=== PATIENT | male | born 1950 | race African-American/Black ===

== ENCOUNTER → 2018-07-15 | Outpatient (CLI) | payer MEDICARE, OTHER ==
--- NOTE | 2018-07-15 12:28 | Diagnostic Imaging Report ---
INDICATION: History of renal calculus. Followup. COMPARISON: None. FINDINGS: Single supine radiographic view of the abdomen was obtained and demonstrates nondistended loops of small bowel. There is no large collection of free peritoneal air. Moderate air and stool are seen scattered throughout the colon. No unexpected extraosseous calcifications or radiopaque foreign bodies are seen. Bony structures show no gross acute abnormalities. IMPRESSION: 1. Nonobstructed small bowel gas pattern. 2. Moderate colonic air and stool. Please correlate for constipation. Dictated by: Dictated on workstation # [id number]
== END ==
LOC: RAD FS 12:08
PROVIDERS: ATTEND Urology
DX: N20.0 Calculus of kidney (principal); N21.0 Calculus in bladder
CPT/HCPCS: 74018

== ENCOUNTER → 2019-07-19 | Outpatient (CLI) | payer MEDICARE, OTHER ==
[~2019-07-19] VITALS: Ht 191 cm; Wt 102.0 kg
[~2019-07-19] MED LIST: CATHETER FLUSH 10 ML SYR IV PRN; REGADENOSON 0.4 MG/5 ML SYR (LEXISCAN) IV ONE
[2019-07-19 13:30] VITALS: BP 135/88
--- NOTE | 2019-07-19 15:44 | STRESS TEST ---
DATE OF SERVICE: 07/19/2019 LEXISCAN MYOVIEW STRESS TEST REPORT REFERRING PHYSICIAN: [facility]. Baseline heart rate is 84, baseline blood pressure 137/89. Baseline EKG is sinus rhythm with left bundle-branch block. In summary, the patient was injected with 10.93 mCi of technetium-99 Myoview and the resting images were obtained. Then, the patient received 0.4 mg of Lexiscan followed by 29.2 mCi of technetium-99 Myoview. Throughout the test, there were no EKG changes. The resting and stress images were reviewed and compared in the short axis, horizontal long axis, and vertical long axis views. Review of the images showed diaphragmatic attenuation with mild decreased uptake involving the mid to apical anteroseptal and inferoseptum with mild reversibility. SSS is 6, SDS 5, TID value 1.15. On the gated images, the left ventricle appeared to be in normal size with mild diffuse left ventricular hypokinesia, calculated ejection fraction 49%. CONCLUSION: 1. The patient tolerated Lexiscan well. 2. Diaphragmatic attenuation with questionable mild ischemia involving the mid to apical anteroseptum and inferoseptum, could be due to underlying left bundle-branch block. 3. Normal left ventricular size with normal contractility. Calculated ejection fraction 49%. Job ID: [id number] DocumentID: [id number] Dictated Date: 07/19/2019 14:58:09 [employer] Operator Date: 07/19/2019 15:44:07 Dictated By: TUAN RAYGOZA MD
== END ==
LOC: CARD 11:46
PROVIDERS: ATTEND Internal Medicine Cardiovascular Disease
DX: I11.0 Hypertensive heart disease with heart failure (principal); I50.9 Heart failure, unspecified; E78.2 Mixed hyperlipidemia
CPT/HCPCS: 78452; 93017

== ENCOUNTER → 2019-09-18 | Outpatient (CLI) | payer MEDICARE, OTHER | LOC: CARD 08:14 | PROVIDERS: ATTEND Internal Medicine Cardiovascular Disease | DX: I11.0 Hypertensive heart disease with heart failure (principal); E78.2 Mixed hyperlipidemia; R53.82 Chronic fatigue, unspecified; I50.9 Heart failure, unspecified; I35.0 Nonrheumatic aortic (valve) stenosis | CPT/HCPCS: 93306 ==

== ENCOUNTER → 2019-10-20 | Outpatient (CLI) | payer MEDICARE, OTHER ==
--- NOTE | 2019-10-20 10:52 | Diagnostic Imaging Report ---
INDICATION: Renal calculus. COMPARISON: July 15, 2018. TECHNIQUE: Two radiographs of the abdomen dated October 20, 2019. FINDINGS: Surgical clips are present within the right upper quadrant of the abdomen. Nonobstructive loops of large and small bowel are again identified. Calcifications overlying the right pelvis are again identified and stable from the prior exam, favored related to phleboliths. Small rounded hyperdensities are noted overlying the expected location of the bilateral renal shadows, largest measuring 5 mm on the left. The majority of these appear stable from prior exam. No free air. Scattered osseous degenerative changes without acute osseous abnormality. IMPRESSION: Tiny radiopaque densities overlying the expected location of the bilateral kidneys. These may relate to renal stones versus enteric contents versus vascular calcifications. Stable presumed phleboliths within the right pelvis. Nonobstructive bowel gas pattern. Dictated by: Dictated on workstation # [id number]
== END ==
LOC: RAD FS 10:26
PROVIDERS: ATTEND Urology
DX: N20.0 Calculus of kidney (principal); Z98.890 Other specified postprocedural states
CPT/HCPCS: 74018

== ENCOUNTER → 2020-08-16 | Outpatient (CLI) | payer MEDICARE, OTHER ==
--- NOTE | 2020-08-16 13:23 | Diagnostic Imaging Report ---
REASON FOR EXAM: History of renal stone 2 weeks ago. COMPARISON: 10/20/2019. TECHNIQUE: 2 views of the abdomen FINDINGS: The bowel gas pattern is nondistended. No large collection of free intraperitoneal air is seen. A moderate amount of gas and fecal material are present in the colon. Focal calcifications are again seen overlying the bilateral kidneys, suggestive of nonobstructing calculi. The osseous structures are age-appropriate. IMPRESSION: 1. Redemonstration of bilateral nonobstructing renal calculi. Consider CT of the abdomen and pelvis without contrast to further characterize. Dictated by: Dictated on workstation # [id number]
== END ==
LOC: RAD FS 10:53
PROVIDERS: ATTEND Urology
DX: N20.0 Calculus of kidney (principal)
CPT/HCPCS: 74018

== ENCOUNTER → 2020-10-18 | Outpatient (CLI) | payer MEDICARE, OTHER ==
--- NOTE | 2020-10-18 14:09 | Diagnostic Imaging Report ---
HISTORY: Right flank pain and hematuria COMPARISON: 08/16/2020 TECHNIQUE: Frontal view of the abdomen FINDINGS: Small hyperdensities are seen in the kidneys, consistent with known renal calcifications. No calculi are seen along the expected course of the ureters or at the bladder. There are calcifications at the spleen. Phleboliths are noted in the right pelvis. The bowel gas pattern is nonspecific but appears stable compared to prior exams. No large collection of free air is seen. Cholecystectomy clips are noted. IMPRESSION: 1. Redemonstrated renal calcifications. No definite calculi are seen along the course of the ureters, but this would be better evaluated with CT. Dictated by: Dictated on workstation # [id number]
== END ==
LOC: RAD FS 10:43
PROVIDERS: ATTEND Urology
DX: R31.9 Hematuria, unspecified (principal); R10.9 Unspecified abdominal pain; Z87.442 Personal history of urinary calculi
CPT/HCPCS: 74018

== ENCOUNTER → 2020-10-18 | Outpatient (CLI) | payer MEDICARE, OTHER ==
--- NOTE | 2020-10-18 12:33 | Diagnostic Imaging Report ---
EXAMINATION: CT abdomen and pelvis without contrast. TECHNIQUE: Multiple contiguous axial images were obtained through the abdomen and pelvis without the use of intravenous contrast. All CT scans use one or more of the following dose optimizing techniques: automated exposure control, MA and/or KvP adjustment based on patient size and exam type or iterative reconstruction. HISTORY: RT FLANK PAIN COMPARISON: None available. FINDINGS: Lung bases: Bibasilar dependent atelectasis. Solid organs: The liver is normal. The gallbladder is surgically absent. There is no biliary ductal dilation. Pancreas is normal. There are multiple calcified granulomas within the spleen. Adrenal glands are normal. There are multiple bilateral nonobstructing renal calculi which measure up to 0.4 cm on the left. There is no hydronephrosis. Bowel: The stomach and small bowel are normal without obstruction. There are a few scattered colonic diverticula. The appendix is normal. Peritoneum: There is no intraperitoneal free fluid or free air. No suspicious lymphadenopathy. Vasculature: Calcification of the aorta without aneurysm. Musculoskeletal: Degenerative changes of the spine without suspicious osseous lesion or compression fracture. Pelvis: The prostate gland is enlarged. The urinary bladder is normal. IMPRESSION: 1. No acute abnormality in the abdomen or pelvis. 2. Bilateral nonobstructing renal calculi measuring up to 0.4 cm. No hydronephrosis. 3. Colonic diverticulosis without findings of diverticulitis. Dictated by: Dictated on workstation # [id number]
== END ==
LOC: RAD FS 12:10
PROVIDERS: ATTEND Urology
DX: N20.0 Calculus of kidney (principal); K57.30 Diverticulosis of large intestine without perforation or abscess without bleeding
CPT/HCPCS: 74176

== ENCOUNTER → 2021-10-17 | Outpatient (CLI) | payer MEDICARE, OTHER ==
--- NOTE | 2021-10-17 11:47 | Diagnostic Imaging Report ---
INDICATION: History of renal calculus. COMPARISON: 10/18/2020 2 frontal supine radiographic views of the abdomen were obtained. FINDINGS: Mild gas is seen scattered diffusely throughout the small bowel. There is no large collection of free intraperitoneal air. No unexpected extraosseous calcifications or radiopaque foreign bodies are seen. Please note, renal shadows are obscured by debris within the large and small bowel. Osseous structures show no acute abnormalities. IMPRESSION: 1. Nonobstructive small bowel gas pattern. 2. Suboptimal evaluation for renal calculi given obscuration by debris within the large and small bowel. Dictated by: Dictated on workstation # [id number]
== END ==
LOC: RAD FS 10:06
PROVIDERS: ATTEND Urology
DX: Z87.442 Personal history of urinary calculi (principal)
CPT/HCPCS: 74018

== ENCOUNTER → 2022-07-31 | Outpatient (CLI) | payer MEDICARE, OTHER ==
[2022-07-31 07:23] LABS: ALBUMIN 3.5 GM/DL (3.2-4.5); BILIRUBIN,TOTAL 0.5 MG/DL (0.1-1.0); CREATININE SERUM 1.24 MG/DL (0.60-1.30); POTASSIUM 3.9 MMOL/L (3.6-5.0); TOTAL PROTEIN 6.5 GM/DL (6.4-8.2)
== END ==
LOC: CARD 06:40
PROVIDERS: ATTEND Internal Medicine Cardiovascular Disease
DX: I11.0 Hypertensive heart disease with heart failure (principal); I65.23 Occlusion and stenosis of bilateral carotid arteries; E78.2 Mixed hyperlipidemia; R60.0 Localized edema
CPT/HCPCS: 80053; 80061; C8929; 36415; 93306

== ENCOUNTER → 2022-07-31 | Outpatient (CLI) | payer MEDICARE, OTHER ==
[~2022-07-31] MED LIST changes: -CATHETER FLUSH 10 ML SYR IV PRN
[2022-07-31] MEDS: CATHETER FLUSH 10 ML SYR IVP PRN ×2 (07:36→08:16)
[2022-07-31 08:16] VITALS: BP 156/87
--- NOTE | 2022-07-31 11:24 | Cardiology Stress Test Report ---
Stress Test Report Date of Procedure/Referring: Date of Procedure: Jul 31, 2022 PCP Merlin Marley MD Admitting Physician Admitting Physician: Attending Physician: Namita Castañeda MD Indications: HTN Baseline Heart Rate: 70 Baseline Blood Pressure: Blood Pressure Systolic: 156 Blood Pressure Diastolic: 87 Baseline Vitals Vital Signs Date Time Temp Pulse Resp B/P (MAP) Pulse Ox O2 Delivery O2 Flow Rate FiO2 07/31/22 08:16 70 156/87 (110) 99 Baseline EKG: Baseline EKG: LBBB Summary After explaining the procedure to the patient, he signed a consent and then brought to the stress nuclear laboratory. Patient received 0.4 mg Lexiscan for stress test, ECG, heart rate and blood pressure were monitored continuously. Resting and stress dose of radio tracer were injected, imaging was acquired and reviewed in short axis, horizontal long axis and vertical long axis views. TID: 1.04 SSS: 5 SDS: 4 EF: 49 Patient tolerated Lexiscan well Baseline left bundle branch block persisted during test Diaphragmatic attenuation with reversible ischemia involving the inferior wall inferior apex and inferoseptum Normal left ventricular size, hypokinesia of the inferior wall inferoapex and inferoseptum, ejection fraction 49% Copy Copies To 1: MERLIN MARLEY MD, BASHAR J MD Jul 31, 2022 11:24
== END ==
LOC: CARD 07:15
PROVIDERS: ATTEND Internal Medicine Cardiovascular Disease
DX: I11.9 Hypertensive heart disease without heart failure (principal); J98.6 Disorders of diaphragm
CPT/HCPCS: 78452; 93017; A9502

== ENCOUNTER 2022-08-05 08:00 | Day surgery (SDC) | payer MEDICARE, OTHER ==
[~2022-08-05] VITALS: Ht 109.5 cm; Wt 104.0 kg
[2022-08-05] VITALS (9 sets, daily range): BP systolic 114–140; BP diastolic 69–87
[2022-08-05 07:17] LABS: HEMATOCRIT 44 % (40-54); HEMOGLOBIN 14.2 g/dL (13.3-17.7); MEAN CORPUSCULAR HEMOGLOBIN 27 pg (25-34); MEAN CORPUSCULAR HGB CONC 32 g/dL (32-36); MEAN CORPUSCULAR VOLUME 83 fL (80-99); MEAN PLATELET VOLUME 9.7 fL (9.0-12.2); PLATELET COUNT 170 10^3/uL (130-400); WHITE BLOOD COUNT 4.5 10^3/uL (4.3-11.0)
[2022-08-05 07:30] LABS: PROTHROMBIN TIME PATIENT 13.9 SEC (12.2-14.7)
[2022-08-05 07:38] LABS: ALBUMIN 3.7 GM/DL (3.2-4.5); BILIRUBIN,TOTAL 0.6 MG/DL (0.1-1.0); CALCIUM 8.9 MG/DL (8.5-10.1); CREATININE SERUM 1.31 MG/DL (0.60-1.30); POTASSIUM 3.9 MMOL/L (3.6-5.0); TOTAL PROTEIN 6.8 GM/DL (6.4-8.2)
--- NOTE | 2022-08-05 07:50 | Diagnostic Imaging Report ---
Clinical indications: Precatheterization chest x-ray. No chest complaints. EXAM: Portable chest x-ray upright view. COMPARISON: None. FINDINGS: Lungs/pleura: Lungs are clear. There is no pneumothorax. There is no pleural effusion. Mediastinum: Unremarkable. Pulmonary vasculature: Unremarkable. Heart: Unremarkable. Bones/extrathoracic soft tissue: There are degenerative spurs involving the thoracic spine. IMPRESSION: There is no radiographic evidence of acute cardiopulmonary process. Dictated by: Dictated on workstation # [id number]
[~2022-08-05 08:00] MED LIST changes: +ASPI-999 PO; +ATOR20TA66 PO; +CARV3.122 PO; +FINA5TAB6 PO; +FURO20TA4 PO; +HEParin (CATH LAB) 2,000 ML IV ONE; +HEParin 1000 UNIT/ML (10ML VIAL) FOR BOLUS ONE; +LIDOCAINE 1% INJ 20 ML VIAL ONE; +LOSA25TA41 PO; +MIDAZOLAM 5 MG/5 ML (VERSED) VIAL ONE; +NITRO DRIP 25000 MCG/D5W 250 ML IV ONE; +NS IV 1000 ML 1,000 ML IV SCH; +NS IV 1000 ML 1,000 ML ONE; +OMEG100032 PO; +PANT40TA52 PO; +POTA-177 PO; -REGADENOSON 0.4 MG/5 ML SYR (LEXISCAN) IV ONE; +TOPI25TA10 PO; +VERAPAMIL 5 MG/2 ML (CALAN) VIAL IV ONE; +fentaNYL INJ 100 MCG/2 ML AMP ONE
--- NOTE | 2022-08-05 08:15 | Cardiac Procedure Note-CS/ASA ---
Pre-Procedure Note Pre-Op Procedure Note Date of Available H&P: Aug 03, 2022 Date H&P Reviewed: Aug 05, 2022 Time H&P Reviewed: 08:15 History & Physical: H&P Reviewed, Patient Examed, No changes noted Pre-Operative Diagnosis: CAD Moderate Sedation PreProcedure Time 08:15 ASA Score 3 Airway Lungs Heart ASA score ASA 1: a normal healthy patient ASA 2: a patient with a mild systemic disease (mid diabetes, controlled hypertension, obesity ASA 3: a patient with a severe systemic disease that limits activity (angina, COPD, prior Myocardial infarction) ASA 4: a patient with an incapacitating disease that is a constant threat to life (CHF, renal failure) ASA 5: a moribund patient not expected to survive 24 hrs. (ruptured aneurysm) ASA 6: a declared brain- patient whose organs are being harvested. For emergent operations, add the letter E after the classification Mallampati Classification Grade 3 Sedation Plan Analgesia, Amnesia, Plan communicated to team members, Discussed options with patient/fam, Discussed risks with patient/fam The patient is an appropriate candidate to undergo the planned procedure, sedation, and anesthesia. The patient immediately re-assessed prior to indication. TUAN RAYGOZA MD Aug 05, 2022 08:15
--- NOTE | 2022-08-05 09:12 | Discharge Inst-Post CATH ---
Discharge Inst-CATH/EP Problems Reviewed?: Yes Post Cardiac Cath/EP D/C Inst Follow Up/Plan Appointment with Dr. Castañeda's office in 4 weeks <b>CARDIAC CATH/EP PROCEDURE DISCHARGE INSTRUCTIONS</b> ACTIVITY * Go Home directly and rest. * Limit activity of the leg (or wrist if it was used) for 7 days including aerobics, swimming, jogging, bicycling, etc. * Restrict stair-climbing for 7 days if possible, if not, climb up with your non-cath leg, then bring together on the same step. * Avoid lifting, pushing, pulling or excessive movement of the affected extremity for 7 days. * Customary sexual activity may be resumed after 2 days-use caution not to use a position that strains or causes pain to the affected extremity. * No driving for 24 hours. * NO SMOKING. * Avoid straining for bowel movements for 7 days. * Gentle walking on level ground is allowed. * Returning to work will depend on the type of procedure and the results. Your doctor will discuss this with you. CALL YOUR DOCTOR FOR ANY OF THE FOLLOWING: *If bleeding from the puncture site occurs- Apply gentle pressure to site with clean cloth and call your doctor or EMS. * If a knot or lump forms under the skin, increases in size, or causes pain. * If bruising appears to be worsening or moving further down your leg instead of disappearing. * Temperature above 101 F. CARE OF YOUR GROIN INCISION; * Bruising or purple discoloration of the skin near the puncture site is common. * You may shower only, no bathtub bathing for 5 days. Be careful to avoid slipping as your leg may feel stiff. * If a closure device was used on your femoral artery, please see the attached guide regarding care of the device and your leg. * Leave dressing on FOR 24 hours. CARE OF YOUR WRIST INCISION; * Bruising or purple discoloration of the skin near the puncture site is common. * You may shower. * DO NOT submerge wrist. * Leave dressing on FOR 24 hours. TUAN CASTAÑEDA MD Aug 05, 2022 09:12
--- NOTE | 2022-08-05 09:14 | Cardiac Cath Report ---
Cardiac Cath Report Physician (s)/Health Promotion Coordinator (s) Physician TUAN RAYGOZA MD Pre-Procedure Diagnosis Pre-Procedure Diagnosis: CAD Post-Procedure Note Procedure Start Date: Aug 05, 2022 Name of Procedure: Left heart catheterization Findings/Procedure Note PROCEDURE NOTE: 71-year-old gentleman with history of hypertension, hyperlipidemia, had an abnormal stress test, scheduled for cardiac catheterization possible PTCA. After explaining the procedure to the patient, all pros and cons were explained, all questions were answered. The patient signed the consent and then he was pl aced in the cardiac catheterization laboratory. Groin was prepped in SL fashion local anesthesia was used. Sheath placed in the right radial artery, Rickman catheter was advanced to the left ventricular cavity, pressure was measured, pullback LV to aorta was done, engage the right and left coronary system, angiogram was done. At the end of the procedure the sheath was removed. Vascular band was used FINDINGS: Hemodynamics LV 130/19, end-diastolic pressure of 19 Aorta 117/81 mean of 97 ANATOMY: Left Main is free of obstructive disease Left Anterior Descending is free of obstructive disease Left Circumflex is free of obstructive disease Right Coronary Artery is dominant artery with no obstructive disease LV Gram was not done, pressure was measured CONCLUSION: No significant obstructive disease in the coronary system Mildly elevated left ventricular end-diastolic pressure DISCUSSION AND RECOMMENDATION: Abnormal stress test is probably due to extracardiac attenuation, medical therapy is recommended Anesthesia Type: Conscious Sedation Estimated blood loss (mL): 10 ml Contrast Amount: 25 ml Total Radiation Dose: 340 mGy Post-Procedure Diagnosis Post-operative diagnosis: Chest pain Coronary artery disease Hypertension Hyperlipidemia TUAN RAYGOZA MD Aug 05, 2022 09:14
[2022-08-05] MEDS ORDERED: NS IV 1000 ML 1,000 ML IV SCH (09:15)
== END 2022-08-05 11:53 | disposition home or self-care (01) ==
LOC: CATH 08:00 → SDC 09:25 → CATH 11:53
PROVIDERS: ATTEND Internal Medicine Cardiovascular Disease
DX: I25.10 Atherosclerotic heart disease of native coronary artery without angina pectoris (principal); I11.0 Hypertensive heart disease with heart failure; I50.9 Heart failure, unspecified; I65.23 Occlusion and stenosis of bilateral carotid arteries; I44.7 Left bundle-branch block, unspecified; E78.2 Mixed hyperlipidemia; R60.0 Localized edema; Z79.899 Other long term (current) drug therapy
CPT/HCPCS: 71045; 80053; 85027; 85610; 85730; 87081; 93005; 93458; C1894; 36415

== ENCOUNTER → 2022-10-16 | Outpatient (CLI) | payer MEDICARE, OTHER ==
[~2022-10-16] MED LIST changes: -HEParin (CATH LAB) 2,000 ML IV ONE; -HEParin 1000 UNIT/ML (10ML VIAL) FOR BOLUS ONE; -LIDOCAINE 1% INJ 20 ML VIAL ONE; -MIDAZOLAM 5 MG/5 ML (VERSED) VIAL ONE; -NITRO DRIP 25000 MCG/D5W 250 ML IV ONE; -NS IV 1000 ML 1,000 ML IV SCH; -NS IV 1000 ML 1,000 ML ONE; -VERAPAMIL 5 MG/2 ML (CALAN) VIAL IV ONE; -fentaNYL INJ 100 MCG/2 ML AMP ONE
--- NOTE | 2022-10-16 15:01 | Diagnostic Imaging Report ---
EXAMINATION: Abdomen 1 view HISTORY: HX KIDNEY STONE COMPARISON: None available. FINDINGS: There is a moderate amount of gas and stool throughout the colon. Nonobstructive bowel gas pattern. There are numerous small stones overlying the left kidney measuring up to 0.5 cm. Right upper quadrant cholecystectomy clips are present. The osseous structures are intact. IMPRESSION: Small likely renal calculi overlying the left kidney measuring up to 0.5 cm. Dictated by: Dictated on workstation # [id number]
== END ==
LOC: RAD FS 13:41
PROVIDERS: ATTEND Urology
DX: Z87.442 Personal history of urinary calculi (principal)
CPT/HCPCS: 74018

== ENCOUNTER 2023-04-12 14:36 | Emergency (ER) | payer MEDICARE, OTHER ==
[~2023-04-12] VITALS: Ht 190.5 cm; Wt 120.6 kg
[2023-04-12] MEDS ORDERED: RT-Ipratropium/Albuterol NEB 3 ML VIAL INH ONE ×2 (15:00→18:45)
[2023-04-12 15:03] LABS: BASOPHILS % (AUTO) 0 % (0-10); EOSINOPHILS % (AUTO) 0 % (0-10); HEMATOCRIT 49 % (40-54); HEMOGLOBIN 15.4 g/dL (13.3-17.7); LYMPHOCYTES # (AUTO) 0.6 X 10^3 (1.0-4.0); LYMPHOCYTES % (AUTO) 7 % (12-44); MEAN CORPUSCULAR HEMOGLOBIN 27 pg (25-34); MEAN CORPUSCULAR HGB CONC 31 g/dL (32-36); MEAN CORPUSCULAR VOLUME 84 fL (80-99); MEAN PLATELET VOLUME 10.7 fL (9.0-12.2); MONOCYTES # (AUTO) 0.3 X 10^3 (0.0-1.0); MONOCYTES % (AUTO) 4 % (0-12); NEUTROPHILS # (AUTO) 6.9 X 10^3 (1.8-7.8); NEUTROPHILS % (AUTO) 89 % (42-75); PLATELET COUNT 166 10^3/uL (130-400); WHITE BLOOD COUNT 7.8 10^3/uL (4.3-11.0)
[2023-04-12 15:06] LABS: PROTHROMBIN TIME PATIENT 13.8 SEC (12.2-14.7)
[2023-04-12] MEDS ORDERED: PANTOPRAZOLE INJECTION 40 MG VIAL IV ONE (15:15)
[2023-04-12] MEDS ORDERED: LACTATED RINGERS 1,000 ML 1,000 ML IV ONE (15:15)
[2023-04-12] MEDS ORDERED: ONDANSETRON INJECTION 4 MG/2 ML (SDV) IVP ONE ×2 (15:15→19:00)
[2023-04-12] MEDS ORDERED: methylPREDNISolone INJ 125 MG VIAL IVP ONE (15:15)
--- NOTE | 2023-04-12 15:17 | Diagnostic Imaging Report ---
EXAMINATION: Chest, one view. HISTORY: Chest pain. COMPARISON: 08/05/2022. FINDINGS: The lung volumes are normal. No focal consolidation is seen. No large pleural effusion or pneumothorax is seen. The cardiomediastinal silhouette is normal in size and contour. No acute osseous abnormality is seen. IMPRESSION: 1. No acute pleural-parenchymal process. Dictated by: Dictated on workstation # [id number]
[2023-04-12 15:19] LABS: ALBUMIN 4.1 GM/DL (3.2-4.5); CHLORIDE 112 MMOL/L (98-107); POTASSIUM 3.9 MMOL/L (3.6-5.0); SODIUM 143 MMOL/L (135-145)
[2023-04-12 15:20] LABS: CALCIUM 9.9 MG/DL (8.5-10.1)
[2023-04-12 15:21] LABS: GLUCOSE 134 MG/DL (70-105)
[2023-04-12 15:22] LABS: CARBON DIOXIDE 21 MMOL/L (21-32)
[2023-04-12 15:23] LABS: BILIRUBIN,TOTAL 0.8 MG/DL (0.1-1.0)
[2023-04-12 15:25] LABS: ALKALINE PHOSPHATASE 85 U/L (40-136); CREATININE SERUM 1.32 MG/DL (0.60-1.30); GFR ESTIMATED 57
[2023-04-12 15:26] LABS: BUN/CREATININE RATIO 14
[2023-04-12 15:28] LABS: ALANINE AMINOTRANSFERASE 58 U/L (0-55); MAGNESIUM 2.1 MG/DL (1.6-2.4)
[2023-04-12 15:45] LABS: EOSINOPHILS % (MANUAL) 1 %; LYMPHOCYTES % (MANUAL) 5 %; MONOCYTES % (MANUAL) 6 %; NEUTROPHILS % (MANUAL) 83 %; RBC MORPH NORMAL; REACTIVE LYMPHOCYTES 5 %
--- NOTE | 2023-04-12 16:29 | ED Chest Pain ---
General Chief Complaint: Chest Pain Stated Complaint: CHEST PAINS Nursing Triage Note: PT TO RM 4 BY WC WITH SPOUSE WITH C/O COUGH, CP AND N/V TODAY. PT SEEN AT [facility] THIS AM AND GIVEN ABX AND PREDNISONE Source: patient, family Exam Limitations: no limitations History of Present Illness Date Seen by Provider: Apr 12, 2023 Allergies and Home Medications Allergies Coded Allergies: No Known Drug Allergies (Unverified , 07/19/19) Patient Home Medication List Aspirin (Aspirin) 81 Mg Tab.chew, 81 MG PO DAILY, (Reported) Entered as Reported by: ILEANA STARR on 08/05/22724 Atorvastatin Calcium (Atorvastatin Calcium) 20 Mg Tablet, 20 MG PO 1700, (Reported) Entered as Reported by: ILEANA STARR on 08/05/22724 Carvedilol (Carvedilol) 3.125 Mg Tablet, 3.125 MG PO BID, (Reported) Entered as Reported by: ILEANA STARR on 08/05/22724 Finasteride (Finasteride) 5 Mg Tablet, 5 MG PO DAILY, (Reported) Entered as Reported by: ILEANA STARR on 08/05/22724 Furosemide (Furosemide) 20 Mg Tablet, 20 MG PO DAILY, (Reported) Entered as Reported by: ILEANA STARR on 08/05/22724 Losartan Potassium (Losartan Potassium) 25 Mg Tablet, 25 MG PO DAILY, (Reported) Entered as Reported by: ILEANA STARR on 08/05/22724 [place]-3/Dha/Epa/Fish Oil (Fish Oil 1,000 mg Softgel) 1,000 Mg (120 Mg-180 Mg) Capsule, 1,000 MG PO DAILY, (Reported) Entered as Reported by: ILEANA STARR on 08/05/22724 Ondansetron (Ondansetron Odt) 4 Mg Tab.rapdis, 4 MG SL Q4H PRN for NAUSEA/VOMITING Prescribed by: SARAN NAM on 04/12/231840 Pantoprazole Sodium (Pantoprazole Sodium) 40 Mg Tablet.dr, 40 MG PO DAILY, (Reported) Entered as Reported by: ILEANA STARR on 08/05/22724 Potassium Chloride (Potassium Chloride) 10 Meq Tab.er.prt, 10 MEQ PO DAILY, (Reported) Entered as Reported by: ILEANA STARR on 08/05/22724 Topiramate (Topiramate) 25 Mg Tablet, 25 MG PO HS, (Reported) Entered as Reported by: ILEANA STARR on 08/05/22724 Past Mjgnmts-Vehomt-Ewsxgg Hx Patient Social History Tobacco Use?: No Use of E-Cig and/or Vaping dev: No Substance use?: No Alcohol Use?: No Pt feels they are or have been: No Immunizations Up To Date Influenza Vaccine Up-to-Date: Yes; Up-to-Date Past Medical History Surgery/Hospitalization HX: HTN, L BUNDLE BRANCH BLOCK, HLD, GERD RAMANDEEP, PROSTATE TURP, Gallbladder, Vasectomy Currently Using CPAP: No Cardiac: Yes (Chronic left bundle branch block) High Cholesterol, Hypertension Kidney Stones Physical Exam Vital Signs Vital Signs - First Documented 04/12/23 14:38 Temp 36.8 Pulse 118 Resp 22 B/P (MAP) 114/89 (97) Pulse Ox 94 O2 Delivery Room Air Capillary Refill : Height, Weight, BMI Height: '" Weight: lbs. oz. kg; 33.00 BMI Method: Progress/Results/Core Measures Results/Orders Lab Results Laboratory Tests Test 04/12/23 14:45 04/12/23 15:05 04/12/23 16:25 04/12/23 17:30 Range/Units White Blood Count 7.8 4.3-11.0 10^3/uL Red Blood Count 5.82 H 4.30-5.52 10^6/uL Hemoglobin 15.4 13.3-17.7 g/dL Hematocrit 49 40-54 % Mean Corpuscular Volume 84 80-99 fL Mean Corpuscular Hemoglobin 27 25-34 pg Mean Corpuscular Hemoglobin Concent 31 L 32-36 g/dL Red Cell Distribution Width 14.1 10.0-14.5 % Platelet Count 166 130-400 10^3/uL Mean Platelet Volume 10.7 9.0-12.2 fL Immature Granulocyte % (Auto) 0 % Neutrophils (%) (Auto) 89 H 42-75 % Lymphocytes (%) (Auto) 7 L 12-44 % Monocytes (%) (Auto) 4 0-12 % Eosinophils (%) (Auto) 0 0-10 % Basophils (%) (Auto) 0 0-10 % Neutrophils # (Auto) 6.9 1.8-7.8 X 10^3 Lymphocytes # (Auto) 0.6 L 1.0-4.0 X 10^3 Monocytes # (Auto) 0.3 0.0-1.0 X 10^3 Eosinophils # (Auto) 0.0 0.0-0.3 10^3/uL Basophils # (Auto) 0.0 0.0-0.1 10^3/uL Immature Granulocyte # (Auto) 0.0 0.0-0.1 10^3/uL Neutrophils % (Manual) 83 % Lymphocytes % (Manual) 5 % Monocytes % (Manual) 6 % Eosinophils % (Manual) 1 % Reactive Lymphocytes 5 % Blood Morphology Comment NORMAL Prothrombin Time 13.8 12.2-14.7 SEC INR Comment 1.0 0.8-1.4 Activated Partial Thromboplast Time 22 L 24-35 SEC Sodium Level 143 135-145 MMOL/L Potassium Level 3.9 3.6-5.0 MMOL/L Chloride Level 112 H 98-107 MMOL/L Carbon Dioxide Level 21 21-32 MMOL/L Anion Gap 10 5-14 MMOL/L Blood Urea Nitrogen 18 7-18 MG/DL Creatinine 1.32 H 0.60-1.30 MG/DL Estimat Glomerular Filtration Rate 57 BUN/Creatinine Ratio 14 Glucose Level 134 H 70-105 MG/DL Calcium Level 9.9 8.5-10.1 MG/DL Corrected Calcium 9.8 8.5-10.1 MG/DL Magnesium Level 2.1 1.6-2.4 MG/DL Total Bilirubin 0.8 0.1-1.0 MG/DL Aspartate Amino Transf (AST/SGOT) 21 5-34 U/L Alanine Aminotransferase (ALT/SGPT) 58 H 0-55 U/L Alkaline Phosphatase 85 40-136 U/L Myoglobin 190.9 H 10.0-92.0 NG/ML Troponin I < 0.028 < 0.028 <0.028 NG/ML C-Reactive Protein High Sensitivity 0.15 0.00-0.50 MG/DL B-Type Natriuretic Peptide 47.9 <100.0 PG/ML Total Protein 8.0 6.4-8.2 GM/DL Albumin 4.1 3.2-4.5 GM/DL Influenza Type A (RT-PCR) Not Detected Not Detecte Influenza Type B (RT-PCR) Not Detected Not Detecte SARS-CoV-2 RNA (RT-PCR) Not Detected Not Detecte D-Dimer 0.44 0.00-0.49 UG/ML My Orders Orders - SARAN CELESTE MD Ekg Tracing (04/12/23 14:43) Cbc And Automated Diff (04/12/23 14:57) Magnesium (04/12/23 14:57) Chest 1 View, Ap/Pa Only (04/12/23 14:57) Comprehensive Metabolic Panel (04/12/23 14:57) Myoglobin Serum (04/12/23 14:57) Protime With Inr (04/12/23 14:57) Partial Thromboplastin Time (04/12/23 14:57) O2 (04/12/23 14:57) Monitor-Rhythm Ecg Trace Only (04/12/23 14:57) Ed Iv/Invasive Line Start (04/12/23 14:57) Troponin I [place] (04/12/23 14:57) Covid 19 Inhouse Test (04/12/23 14:57) Influenza A And B By Pcr (04/12/23 14:57) Ipratropium/Albuterol Inh Soln (Ipratrop (04/12/23 15:00) Svn Small Volume Nebulizer (04/12/23 15:00) Manual Differential (04/12/23 14:45) Bnp [place] (04/12/23 15:08) Hs C Reactive Protein (04/12/23 15:08) Lactated Ringers 1,000 Ml (Lactated Ring (04/12/23 15:15) Methylprednisolone Sod Succ (Methylpredn (04/12/23 15:15) Pantoprazole Injection (Pantoprazole Inj (04/12/23 15:15) Ondansetron Injection (Ondansetron Inj (04/12/23 15:15) Fibrin Degradation Products (04/12/23 16:30) Troponin I [place] (04/12/23 16:45) Ipratropium/Albuterol Inh Soln (Ipratrop (04/12/23 18:45) Svn Small Volume Nebulizer (04/12/23 18:35) Ondansetron Injection (Ondansetron Inj (04/12/23 19:00) Medications Given in ED Current Medications Medications Dose Ordered Sig/Natasha Route Start Time Stop Time Status Last Admin Dose Admin Albuterol/ Ipratropium 3 ml ONCE ONCE INH 04/12/23 15:00 04/12/23 15:01 DC 04/12/23 15:03 3 ML Albuterol/ Ipratropium 3 ml ONCE ONCE INH 04/12/23 18:45 04/12/23 18:46 DC 04/12/23 18:53 3 ML Lactated Ringer's 1,000 ml @ 0 mls/hr Q0M ONCE IV 04/12/23 15:15 04/12/23 15:16 DC 04/12/23 15:25 1,000 MLS/HR Methylprednisolone Sodium Succinate 125 mg ONCE ONCE IVP 04/12/23 15:15 04/12/23 15:16 DC 04/12/23 15:25 125 MG Ondansetron HCl 4 mg ONCE ONCE IVP 04/12/23 15:15 04/12/23 15:16 DC 04/12/23 15:25 4 MG Ondansetron HCl 4 mg ONCE ONCE IVP 04/12/23 19:00 04/12/23 19:01 DC 04/12/23 18:53 4 MG Pantoprazole 40 mg ONCE ONCE IV 04/12/23 15:15 04/12/23 15:16 DC 04/12/23 15:24 40 MG Vital Signs/I&O 04/12/23 04/12/23 04/12/23 14:38 15:22 19:13 Temp 36.8 36.8 Pulse 118 116 Resp 22 19 B/P (MAP) 114/89 (97) 127/83 Pulse Ox 94 97 98 O2 Delivery Room Air Room Air Room Air Blood Pressure Mean: 97 Initial ECG Impression Date: Apr 12, 2023 Initial ECG Impression Time: 15:45 Initial ECG Rate: 120 Initial ECG Rhythm: S.Tach Comment Sinus tachycardia with no overt ischemic ST elevation or depression. Chronic left bundle branch block obscures interpretation. PVCs noted. Departure Impression Primary Impression: Acute bronchitis Additional Impression: Nausea & vomiting Disposition: 01 HOME, SELF-CARE Condition: Improved Departure-Patient Inst. Decision time for Depature: 18:37 Referrals: SELF,CALI MIKE (PCP/Family) Primary Care Physician Patient Instructions: Acute bronchitis, How to Use a Metered Dose Inhaler ED Add. Discharge Instructions: You may resume using the prednisone and antibiotic prescribed by the clinic. Use Zofran (ondansetron) as prescribed for nausea or vomiting. Start with a clear liquid diet and gradually advance your diet with small quantities of bland food as tolerated. Follow-up with your primary care provider as soon as possible. Discuss potentially obtaining a prescription for a nebulizer machine and nebulizer solution by prescription when you follow-up. You may continue using your albuterol inhaler. You may use up to 4 puffs at a time, but do not exceed 4 puffs in a 4-hour period of time. Attached is a handout with instructions for inhaler use. Return to care if you have worsening symptoms despite following these instructions. All discharge instructions reviewed with patient and/or family. Voiced understanding. Scripts Ondansetron (Ondansetron Odt) 4 Mg Tab.rapdis 4 MG SL Q4H PRN for NAUSEA/VOMITING, #10 TAB Prov: SARAN CELESTE MD 04/12/23 Copy Copies To 1: SELF,SARAN PATEL MD, MD Apr 12, 2023 16:29
[2023-04-12] MEDS ORDERED: ONDA4TAB11 SL (18:41)
[2023-04-12 19:13] VITALS: BP 127/83
== END 2023-04-12 19:15 | disposition home or self-care (01) ==
LOC: EDUNIT# 14:36 → ER 14:37
DX: J20.9 Acute bronchitis, unspecified (principal); R11.2 Nausea with vomiting, unspecified; I44.7 Left bundle-branch block, unspecified; I49.3 Ventricular premature depolarization; R00.0 Tachycardia, unspecified
CPT/HCPCS: 36415; 71045; 80053; 83735; 83874; 83880; 84484; 85007; 85027; 85379; 85610; 85730; 86141; 87636; 93005; 93041; 94640